=== PATIENT | female | born 1960 | race Caucasian/White ===

== ENCOUNTER 2018-02-03 09:55 | Inpatient (IN) | payer BC, MEDICAID ==
[~2018-02-03] VITALS: Ht 162.6 cm; Wt 80.3 kg
[2018-02-03 11:00] LABS: Basophils # (auto) 0.1 uL; Eosinophils # (auto) 0.2 uL; Hemoglobin 13.6 g/dL (12.2-16.2); Monocytes # (auto) 0.6 uL; Neutrophils # (auto) 4.4 uL; Nucleated Red Blood Cells % 0.1 %; Platelet Count (auto) 313 10^3/uL (140-450)
[2018-02-03 11:01] LABS: Basophils % (auto) 0.7 % (0.0-2.0); Eosinophils % (auto) 2.3 % (0.0-7.0); Lymphocytes # (auto) 2.9 uL; Lymphocytes % (auto) 36.3 % (10.0-50.0); Mean Corpuscular Hemoglobin 25.4 pg (28.0-32.0); Mean Corpuscular Hgb Conc. 32.4 g/dL (32.0-36.0); Mean Corpuscular Volume 78.3 fL (80.0-100.0); Monocytes % (auto) 6.8 % (0.0-12.0); Neutrophils % (auto) 53.9 % (37.0-80.0); Red Blood Cells 5.36 10^6/uL (4.0-5.20); Red Cell Distribution Width 17.2 % (11.8-14.3); White Blood Cell 8.1 10^3/uL (4.4-10.8)
[2018-02-03 11:15] LABS: Albumin 3.8 g/dL (3.4-5.0); BUN/Creatinine Ratio 17.3; Bilirubin, Total 0.5 mg/dL (0.2-1.0); Calcium 9.8 mg/dL (8.5-10.1); Potassium 4.1 mmol/L (3.5-5.1); Total Protein 7.8 g/dL (6.4-8.2)
[2018-02-03 11:24] LABS: Urine Bacteria NONE SEEN /hpf (None Seen); Urine Blood Negative /uL (Negative); Urine Mucus FEW (None Seen); Urine Specific Gravity 1.034 (1.001-1.035); Urine WBC 6 /hpf (0 - 5)
[2018-02-03] MEDS ORDERED: MORPHINE SULFATE 8mg/ml INJ SDV IV PRN (22:00)
[2018-02-03] MEDS ORDERED: LEVOFLOXACIN 500MG 100 ML IV ONE ×2 (22:00→22:10)
[2018-02-03] MEDS ORDERED: IBUPROFEN 600 MG TAB PO PRN (22:00)
[2018-02-03] MEDS ORDERED: HYDROcodone-ACET 5/325MG TAB ONE (22:10)
[2018-02-03] MEDS ORDERED: IPRATROPIUM BROM 0.5 MG/2.5ML INH SOL NEB PRN (22:15)
[2018-02-03] MEDS ORDERED: ALBUTEROL SULF 2.5 MG/0.5ML(0.5%) NEB SOLN NEB PRN (22:15)
[2018-02-03] MEDS: HYDROcodone-ACET 5/325MG TAB PO PRN (22:49)
[2018-02-04] VITALS (7 sets, daily range): BP systolic 107–181; BP diastolic 56–73
[2018-02-04] MEDS: ONDANSETRON HCL 4 MG/2 ML VIAL IV PRN ×3 (06:14→19:02)
[2018-02-04 06:44] LABS: Calcium 9.5 mg/dL (8.5-10.1)
[2018-02-04 06:46] LABS: Basophils # (auto) 0.1 uL; Eosinophils # (auto) 0.3 uL; Hemoglobin 13.3 g/dL (12.2-16.2); Mean Corpuscular Volume 78.7 fL (80.0-100.0); Monocytes # (auto) 0.6 uL; Nucleated Red Blood Cells % 0.1 %
[2018-02-04 06:49] LABS: Basophils % (auto) 0.9 % (0.0-2.0); Eosinophils % (auto) 4.2 % (0.0-7.0); Hematocrit 41.2 % (36.0-46.0); Lymphocytes # (auto) 2.4 uL; Lymphocytes % (auto) 31.2 % (10.0-50.0); Mean Corpuscular Hemoglobin 25.5 pg (28.0-32.0); Mean Corpuscular Hgb Conc. 32.3 g/dL (32.0-36.0); Monocytes % (auto) 8.1 % (0.0-12.0); Neutrophils # (auto) 4.3 uL; Neutrophils % (auto) 55.6 % (37.0-80.0); Platelet Count (auto) 263 10^3/uL (140-450); Red Blood Cells 5.23 10^6/uL (4.0-5.20); Red Cell Distribution Width 17.1 % (11.8-14.3); White Blood Cell 7.7 10^3/uL (4.4-10.8)
[2018-02-04] MEDS ORDERED: FUROSEMIDE 20 MG TAB PO SCH (10:00)
[2018-02-04] MEDS ORDERED: FAMOTIDINE 20 MG TAB PO SCH (10:00)
[2018-02-04] MEDS ORDERED: LISINOPRIL 10 MG TAB PO SCH (10:00)
[2018-02-04] MEDS: HYDROcodone-ACET 5/325MG TAB PO PRN (12:34)
[2018-02-04] MEDS ORDERED: SODIUM CHLORIDE 0.9% 1,000 ML IV SCH (13:00)
[2018-02-04] MEDS ORDERED: SOD CHL 0.9%/ KCL 20MEQ 1,000 ML IV SCH (14:00)
[2018-02-04] MEDS: Boost Glucose Control 8 Ounces PO SCH (18:09)
[2018-02-04] MEDS: MORPHINE SULFATE 10 MG/ML INJ 1ML SDV IV PRN (19:02)
[2018-02-04] MEDS ORDERED: LEVOFLOXACIN 500MG 100 ML IV SCH (22:00)
[2018-02-05] MEDS: MORPHINE SULFATE 10 MG/ML INJ 1ML SDV IV PRN ×2 (03:20→07:48)
[2018-02-05] MEDS: ONDANSETRON HCL 4 MG/2 ML VIAL IV PRN ×2 (03:20→07:47)
[2018-02-05 05:00] VITALS: BP 103/60
[2018-02-05] MEDS ORDERED: SODIUM CHLORIDE 0.9 % NEB SOLN 3ML NEB ONE (05:38)
[2018-02-05 06:02] LABS: Eosinophils # (auto) 0.2 uL; Hemoglobin 12.9 g/dL (12.2-16.2); Lymphocytes # (auto) 1.7 uL; Monocytes # (auto) 0.6 uL; Neutrophils # (auto) 4.5 uL; Nucleated Red Blood Cells % 0.1 %
[2018-02-05 06:06] LABS: Basophils # (auto) 0.1 uL; Basophils % (auto) 0.8 % (0.0-2.0); Eosinophils % (auto) 3.4 % (0.0-7.0); Hematocrit 39.9 % (36.0-46.0); Lymphocytes % (auto) 23.9 % (10.0-50.0); Mean Corpuscular Hemoglobin 25.7 pg (28.0-32.0); Mean Corpuscular Hgb Conc. 32.5 g/dL (32.0-36.0); Monocytes % (auto) 8.3 % (0.0-12.0); Neutrophils % (auto) 63.6 % (37.0-80.0); Platelet Count (auto) 231 10^3/uL (140-450); Red Blood Cells 5.04 10^6/uL (4.0-5.20)
[2018-02-05 06:32] LABS: Albumin 3.1 g/dL (3.4-5.0); Calcium 9.1 mg/dL (8.5-10.1); Potassium 4.5 mmol/L (3.5-5.1)
[2018-02-05 06:44] LABS: BUN/Creatinine Ratio 22.5
[2018-02-05 06:57] LABS: Bilirubin, Total 0.3 mg/dL (0.2-1.0); Total Protein 7.1 g/dL (6.4-8.2)
[2018-02-05] MEDS: Boost Glucose Control 8 Ounces PO SCH (07:48)
[2018-02-05 08:48] VITALS: BP 115/60
== END 2018-02-05 09:00 | disposition left against medical advice (07) | DRG 438 ==
LOC: ER 10:00 → OVERFLOW 10:01 → WEST WING 23:16
PROVIDERS: ADMIT Nurse Practitioner Family; ATTEND Internal Medicine
DX: K86.3 Pseudocyst of pancreas (principal); K85.91 Acute pancreatitis with uninfected necrosis, unspecified; E11.9 Type 2 diabetes mellitus without complications; N39.0 Urinary tract infection, site not specified; Z53.21 Procedure and treatment not carried out due to patient leaving prior to being seen by health care provider; E86.0 Dehydration; F17.210 Nicotine dependence, cigarettes, uncomplicated; I10 Essential (primary) hypertension; J44.9 Chronic obstructive pulmonary disease, unspecified; K86.0 Alcohol-induced chronic pancreatitis; Z80.3 Family history of malignant neoplasm of breast; Z85.038 Personal history of other malignant neoplasm of large intestine; Z81.8 Family history of other mental and behavioral disorders; Z81.1 Family history of alcohol abuse and dependence
CPT/HCPCS: 36415; 74176; 80048; 80053; 81001; 82150; 83690; 85025; 87086; 93005; 94761; 96365; J1956; J2270; J2405

== ENCOUNTER 2018-02-11 11:24 | Inpatient (IN) | payer BC, MEDICAID ==
[~2018-02-11] VITALS: Ht 162.6 cm; Wt 83.6 kg
[2018-02-11 12:13] LABS: Basophils # (auto) 0.1 uL; Lymphocytes # (auto) 2.5 uL; Monocytes # (auto) 0.8 uL; Nucleated Red Blood Cells % 0.1 %
[2018-02-11 12:15] LABS: Basophils % (auto) 0.7 % (0.0-2.0); Eosinophils # (auto) 0.2 uL; Eosinophils % (auto) 1.5 % (0.0-7.0); Hematocrit 39.9 % (36.0-46.0); Lymphocytes % (auto) 24.7 % (10.0-50.0); Mean Corpuscular Hemoglobin 25.3 pg (28.0-32.0); Mean Corpuscular Hgb Conc. 32.5 g/dL (32.0-36.0); Mean Corpuscular Volume 77.9 fL (80.0-100.0); Monocytes % (auto) 8.1 % (0.0-12.0); Neutrophils # (auto) 6.7 uL; Platelet Count (auto) 432 10^3/uL (140-450); Red Blood Cells 5.12 10^6/uL (4.0-5.20); Red Cell Distribution Width 17.2 % (11.8-14.3); White Blood Cell 10.3 10^3/uL (4.4-10.8)
[2018-02-11 12:44] LABS: Alanine Aminotransferase 13 U/L (13-56); Albumin 3.4 g/dL (3.4-5.0); Alkaline Phosphatase 146 U/L (45-117); Anion Gap 11 (5-15); Aspartate Aminotransferase 7 U/L (15-37); BUN/Creatinine Ratio 14.3; Bilirubin, Total 0.5 mg/dL (0.2-1.0); Blood Urea Nitrogen 10 mg/dL (7-18); Calcium 9.5 mg/dL (8.5-10.1); Carbon Dioxide 23 mmol/L (21-32); Chloride 105 mmol/L (98-107); GFR African American 111 mL/min; GFR Non-African American 92 mL/min; Glucose 125 mg/dL (74-106); Potassium 4.1 mmol/L (3.5-5.1); Sodium 139 mmol/L (136-145)
[2018-02-11 17:14] LABS: Amylase 45 U/L (25-115); Lipase 144 U/L (73-393)
[2018-02-11 19:05] LABS: Urine Bacteria NONE SEEN /hpf (None Seen); Urine Blood Negative /uL (Negative); Urine Mucus MANY (None Seen); Urine Specific Gravity 1.036 (1.001-1.035); Urine WBC 17 /hpf (0 - 5)
[2018-02-11] MEDS ORDERED: SODIUM CHLORIDE 0.9% 1,000 ML IVB ONE (20:06)
[2018-02-11] MEDS ORDERED: MORPHINE SULFATE 8mg/ml INJ SDV IV ONE (20:15)
[2018-02-11] MEDS ORDERED: ONDANSETRON HCL 4 MG/2 ML VIAL IV ONE (20:15)
[2018-02-11] MEDS ORDERED: metroNIDAZOLE 500MG/100ML 100 ML IV ONE (20:15)
[2018-02-11] MEDS ORDERED: cefTRIAXone 1GM/10ml IVPUSH 10 ML IV ONE (20:15)
[2018-02-11] MEDS: SODIUM CHLORIDE 0.9% 1,000 ML IV SCH ×2 (21:38→22:38)
[2018-02-11] MEDS ORDERED: PANTOPRAZOLE 40 MG/10 ML VIAL IV ONE (21:45)
[2018-02-11] MEDS ORDERED: LEVOFLOXACIN 500MG 100 ML IV ONE (21:45)
[2018-02-11] MEDS: metroNIDAZOLE 500MG/100ML 100 ML IV SCH (22:00)
[2018-02-11] MEDS: HYDROcodone-ACET 5/325MG TAB PO PRN (23:55)
[2018-02-12] MEDS: HYDROcodone-ACET 5/325MG TAB PO PRN ×4 (00:11→21:33)
[2018-02-12 05:18] VITALS: BP 105/63
[2018-02-12] MEDS: MORPHINE SULF INJ 2 MG/ML SYRINGE 1ML IV PRN ×2 (05:20→20:58)
[2018-02-12] MEDS: metroNIDAZOLE 500MG/100ML 100 ML IV SCH ×3 (05:21→21:33)
[2018-02-12 06:51] LABS: Basophils # (auto) 0.1 uL; Eosinophils # (auto) 0.3 uL; Neutrophils # (auto) 4.4 uL; Red Blood Cells 4.48 10^6/uL (4.0-5.20)
[2018-02-12 06:54] LABS: Basophils % (auto) 0.8 % (0.0-2.0); Eosinophils % (auto) 3.4 % (0.0-7.0); Hematocrit 35.4 % (36.0-46.0); Hemoglobin 11.5 g/dL (12.2-16.2); Lymphocytes % (auto) 26.2 % (10.0-50.0); Mean Corpuscular Hemoglobin 25.6 pg (28.0-32.0); Mean Corpuscular Hgb Conc. 32.4 g/dL (32.0-36.0); Mean Corpuscular Volume 79.2 fL (80.0-100.0); Monocytes # (auto) 0.8 uL; Monocytes % (auto) 10.7 % (0.0-12.0); Neutrophils % (auto) 58.9 % (37.0-80.0); Platelet Count (auto) 339 10^3/uL (140-450); Red Cell Distribution Width 17.2 % (11.8-14.3); White Blood Cell 7.5 10^3/uL (4.4-10.8)
[2018-02-12 07:02] LABS: Potassium 4.3 mmol/L (3.5-5.1)
[2018-02-12 07:14] LABS: Albumin 2.9 g/dL (3.4-5.0); BUN/Creatinine Ratio 19.8
[2018-02-12 07:16] LABS: Bilirubin, Total 0.3 mg/dL (0.2-1.0); Total Protein 7.2 g/dL (6.4-8.2)
[2018-02-12 08:00] VITALS: BP 105/62
[2018-02-12 09:00] VITALS: BP 105/62
[2018-02-12] MEDS: PANTOPRAZOLE 40 MG/10 ML VIAL IV SCH (09:34)
[2018-02-12] MEDS ORDERED: LISINOPRIL 10 MG TAB PO SCH (10:00)
[2018-02-12] MEDS ORDERED: ENOXAPARIN SOD 40 MG/0.4 ML SYRINGE SC SCH (10:00)
[2018-02-12] MEDS ORDERED: FUROSEMIDE 20 MG TAB PO SCH (10:00)
[2018-02-12] MEDS ORDERED: POTASSIUM CHLORIDE 8 MEQ TAB PO SCH (10:00)
[2018-02-12] MEDS ORDERED: LEVOFLOXACIN 500MG 100 ML IV SCH (10:00)
[2018-02-12 12:00] VITALS: BP 104/62
[2018-02-12 16:53] VITALS: BP 126/62
[2018-02-12] MEDS: ONDANSETRON HCL 4 MG/2 ML VIAL IV PRN (20:17)
[2018-02-12 22:00] VITALS: BP_SYST 109; BP_SYST 166; BP_DIAS 59; BP_DIAS 76
[2018-02-13] MEDS: MORPHINE SULF INJ 2 MG/ML SYRINGE 1ML IV PRN (04:25)
[2018-02-13 05:00] VITALS: BP 119/81
[2018-02-13] MEDS: metroNIDAZOLE 500MG/100ML 100 ML IV SCH ×3 (05:42→21:14)
[2018-02-13] MEDS: HYDROcodone-ACET 5/325MG TAB PO PRN ×4 (05:53→21:14)
[2018-02-13 08:00] VITALS: BP 112/64
[2018-02-13] MEDS: ONDANSETRON HCL 4 MG/2 ML VIAL IV PRN ×3 (08:28→21:18)
[2018-02-13] MEDS: cefTRIAXone 1GM/10ml IVPUSH 10 ML IV SCH (08:38)
[2018-02-13 09:00] VITALS: BP 112/64
[2018-02-13] MEDS: PANTOPRAZOLE 40 MG/10 ML VIAL IV SCH (09:31)
[2018-02-13 13:00] VITALS: BP 126/58
[2018-02-13] MEDS: SODIUM CHLORIDE 0.9% 1,000 ML IV SCH (13:24)
[2018-02-13 16:51] VITALS: BP 128/78
[2018-02-13 22:00] VITALS: BP 134/77
[2018-02-14] MEDS: ONDANSETRON HCL 4 MG/2 ML VIAL IV PRN ×3 (04:21→20:54)
[2018-02-14] MEDS: HYDROcodone-ACET 5/325MG TAB PO PRN ×3 (04:24→20:54)
[2018-02-14] MEDS: SODIUM CHLORIDE 0.9% 1,000 ML IV SCH ×2 (04:24→20:53)
[2018-02-14] MEDS: metroNIDAZOLE 500MG/100ML 100 ML IV SCH ×3 (05:28→22:10)
[2018-02-14 05:44] VITALS: BP 130/72
[2018-02-14 09:32] VITALS: BP 133/66
[2018-02-14] MEDS: cefTRIAXone 1GM/10ml IVPUSH 10 ML IV SCH (09:39)
[2018-02-14] MEDS: PANTOPRAZOLE 40 MG/10 ML VIAL IV SCH (09:40)
[2018-02-14 12:34] VITALS: BP 123/75
[2018-02-14 17:01] VITALS: BP 136/73
[2018-02-14 22:00] VITALS: BP 129/65
[2018-02-14] MEDS: TEMAZEPAM 15 MG CAP PO PRN (22:20)
[2018-02-15 05:00] VITALS: BP 153/75
[2018-02-15] MEDS: metroNIDAZOLE 500MG/100ML 100 ML IV SCH ×3 (05:45→21:40)
[2018-02-15] MEDS: HYDROcodone-ACET 5/325MG TAB PO PRN ×3 (05:46→21:40)
[2018-02-15 08:23] VITALS: BP 132/72
[2018-02-15] MEDS: cefTRIAXone 1GM/10ml IVPUSH 10 ML IV SCH (10:12)
[2018-02-15] MEDS: PANTOPRAZOLE 40 MG/10 ML VIAL IV SCH (10:12)
[2018-02-15 12:43] VITALS: BP 109/59
[2018-02-15] MEDS: ONDANSETRON HCL 4 MG/2 ML VIAL IV PRN (13:52)
[2018-02-15] MEDS: SODIUM CHLORIDE 0.9% 1,000 ML IV SCH ×2 (13:52→18:58)
[2018-02-15 17:08] VITALS: BP 142/66
[2018-02-15 22:00] VITALS: BP 140/79
[2018-02-16] MEDS: HYDROcodone-ACET 5/325MG TAB PO PRN ×3 (04:48→16:20)
[2018-02-16] MEDS: ONDANSETRON HCL 4 MG/2 ML VIAL IV PRN ×4 (04:49→22:19)
[2018-02-16 05:00] VITALS: BP 134/73
[2018-02-16] MEDS: metroNIDAZOLE 500MG/100ML 100 ML IV SCH ×4 (05:37→21:55)
[2018-02-16] MEDS: SODIUM CHLORIDE 0.9% 1,000 ML IV SCH ×2 (08:18→21:38)
[2018-02-16 09:00] VITALS: BP 131/66
[2018-02-16] MEDS: cefTRIAXone 1GM/10ml IVPUSH 10 ML IV SCH (09:05)
[2018-02-16] MEDS: PANTOPRAZOLE 40 MG/10 ML VIAL IV SCH (09:32)
[2018-02-16] MEDS ORDERED: HYDROmorphone HCL 2 MG/ML VL IV PRN (11:30)
[2018-02-16 13:52] VITALS: BP 141/63
[2018-02-16 17:00] VITALS: BP 152/70
[2018-02-16 22:00] VITALS: BP 157/78
[2018-02-16] MEDS: TEMAZEPAM 15 MG CAP PO PRN (22:19)
[2018-02-17] MEDS: ACETAMINOPHEN 325 MG TAB PO PRN ×2 (04:34→08:03)
[2018-02-17] MEDS: ONDANSETRON HCL 4 MG/2 ML VIAL IV PRN ×3 (04:34→13:59)
[2018-02-17 05:00] VITALS: BP 165/82
[2018-02-17] MEDS: metroNIDAZOLE 500MG/100ML 100 ML IV SCH ×3 (05:36→21:52)
[2018-02-17 08:00] VITALS: BP 148/85
[2018-02-17] MEDS: cefTRIAXone 1GM/10ml IVPUSH 10 ML IV SCH (10:36)
[2018-02-17] MEDS: PANTOPRAZOLE 40 MG/10 ML VIAL IV SCH (10:36)
[2018-02-17] MEDS: SODIUM CHLORIDE 0.9% 1,000 ML IV SCH (10:38)
[2018-02-17] MEDS ORDERED: HYDROmorphone HCL 2 MG/ML VL IV PRN (12:00)
[2018-02-17 12:26] VITALS: BP 144/77
[2018-02-17 16:40] VITALS: BP 165/83
[2018-02-17] MEDS: HYDROcodone-ACET 5/325MG TAB PO PRN (17:13)
[2018-02-17] MEDS: TEMAZEPAM 15 MG CAP PO PRN (21:51)
[2018-02-17 22:00] VITALS: BP 156/77
[2018-02-18] MEDS: SODIUM CHLORIDE 0.9% 1,000 ML IV SCH ×2 (00:18→13:38)
[2018-02-18] MEDS: ONDANSETRON HCL 4 MG/2 ML VIAL IV PRN ×3 (00:58→20:50)
[2018-02-18] MEDS: HYDROcodone-ACET 5/325MG TAB PO PRN ×5 (01:02→23:16)
[2018-02-18 05:00] VITALS: BP 147/82
[2018-02-18] MEDS: metroNIDAZOLE 500MG/100ML 100 ML IV SCH ×3 (05:16→21:21)
[2018-02-18 08:00] VITALS: BP 164/79
[2018-02-18 08:47] VITALS: BP 164/79
[2018-02-18] MEDS: PANTOPRAZOLE 40 MG/10 ML VIAL IV SCH (09:46)
[2018-02-18] MEDS: cefTRIAXone 1GM/10ml IVPUSH 10 ML IV SCH (09:46)
[2018-02-18 12:54] VITALS: BP 159/74
[2018-02-18 17:14] VITALS: BP 153/80
[2018-02-18] MEDS: ACETAMINOPHEN 325 MG TAB PO PRN (20:56)
[2018-02-18 22:00] VITALS: BP 152/68
[2018-02-18] MEDS: TEMAZEPAM 15 MG CAP PO PRN (23:13)
[2018-02-19] MEDS: SODIUM CHLORIDE 0.9% 1,000 ML IV SCH ×2 (01:22→15:03)
[2018-02-19] MEDS: ONDANSETRON HCL 4 MG/2 ML VIAL IV PRN (04:25)
[2018-02-19] MEDS: HYDROcodone-ACET 5/325MG TAB PO PRN ×3 (04:29→19:28)
[2018-02-19 05:07] VITALS: BP 151/89
[2018-02-19] MEDS: metroNIDAZOLE 500MG/100ML 100 ML IV SCH ×3 (05:11→21:23)
[2018-02-19 08:09] VITALS: BP 129/71
[2018-02-19] MEDS: cefTRIAXone 1GM/10ml IVPUSH 10 ML IV SCH (10:48)
[2018-02-19] MEDS: PANTOPRAZOLE 40 MG/10 ML VIAL IV SCH (10:48)
[2018-02-19 12:30] VITALS: BP 131/81
[2018-02-19] MEDS: KETOROLAC TROMETH 30 MG/ML 1ML VIAL IV PRN ×2 (15:03→21:23)
[2018-02-19 16:14] VITALS: BP 130/75
[2018-02-19 22:00] VITALS: BP 136/89
[2018-02-20] MEDS: ONDANSETRON HCL 4 MG/2 ML VIAL IV PRN ×2 (03:48→08:57)
[2018-02-20] MEDS: HYDROcodone-ACET 5/325MG TAB PO PRN ×2 (03:49→08:58)
[2018-02-20 05:00] VITALS: BP 139/87
[2018-02-20] MEDS: KETOROLAC TROMETH 30 MG/ML 1ML VIAL IV PRN ×2 (05:52→12:22)
[2018-02-20] MEDS: SODIUM CHLORIDE 0.9% 1,000 ML IV SCH (05:52)
[2018-02-20] MEDS: metroNIDAZOLE 500MG/100ML 100 ML IV SCH (05:52)
[2018-02-20 08:01] VITALS: BP 141/74
[2018-02-20] MEDS: cefTRIAXone 1GM/10ml IVPUSH 10 ML IV SCH (08:58)
[2018-02-20] MEDS: PANTOPRAZOLE 40 MG/10 ML VIAL IV SCH (09:51)
[2018-02-20 11:45] VITALS: BP 149/63
[2018-02-20 16:13] VITALS: BP 150/82
[2018-02-20 16:29] VITALS: BP 145/78
== END 2018-02-20 17:00 | disposition home or self-care (01) | DRG 439 ==
LOC: ER 11:27 → OVERFLOW 11:28 → WEST WING 23:19
PROVIDERS: ADMIT Nurse Practitioner; ATTEND Internal Medicine
DX: K86.3 Pseudocyst of pancreas (principal); N39.0 Urinary tract infection, site not specified; E44.0 Moderate protein-calorie malnutrition; I31.3 Pericardial effusion (noninflammatory); K86.1 Other chronic pancreatitis; J44.9 Chronic obstructive pulmonary disease, unspecified; K52.9 Noninfective gastroenteritis and colitis, unspecified; K57.30 Diverticulosis of large intestine without perforation or abscess without bleeding; I10 Essential (primary) hypertension; F17.210 Nicotine dependence, cigarettes, uncomplicated; Z88.0 Allergy status to penicillin; Z68.31 Body mass index [BMI] 31.0-31.9, adult
CPT/HCPCS: 36415; 71045; 74176; 80053; 81001; 81025; 82150; 83690; 84484; 85025; 87081; 93005; 94761; 96361; 96365; 96367; 96375; C9113; J1885; J1956; J2405; J3490

== ENCOUNTER 2019-04-25 08:20 | Inpatient (IN) | payer BC, MEDICAID ==
[~2019-04-25] VITALS: Ht 162.6 cm; Wt 88.8 kg
[2019-04-25 08:56] LABS: Basophils # (auto) 0.1 uL; Eosinophils # (auto) 0 uL; Eosinophils % (auto) 0.1 % (0.0-7.0); Hemoglobin 18.4 g/dL (12.2-16.2); Lymphocytes # (auto) 1.7 uL; Monocytes # (auto) 1.4 uL
[2019-04-25 08:57] LABS: Basophils % (auto) 0.6 % (0.0-2.0); Hematocrit 54.3 % (36.0-46.0); Lymphocytes % (auto) 8.8 % (10.0-50.0); Mean Corpuscular Volume 85.3 fL (80.0-100.0); Monocytes % (auto) 7.6 % (0.0-12.0); Neutrophils # (auto) 15.8 uL; Neutrophils % (auto) 82.9 % (37.0-80.0); Nucleated Red Blood Cells % 0.1 %; Platelet Count (auto) 245 10^3/uL (140-450); Red Blood Cells 6.36 10^6/uL (4.0-5.20); Red Cell Distribution Width 15.4 % (11.8-14.3); White Blood Cell 19.1 10^3/uL (4.4-10.8)
[2019-04-25 09:05] LABS: Alanine Aminotransferase 19 U/L (13-56); Anion Gap 9 (5-15); Aspartate Aminotransferase 19 U/L (15-37); Blood Urea Nitrogen 15 mg/dL (7-18); Calcium 9.2 mg/dL (8.5-10.1); Carbon Dioxide 23 mmol/L (21-32); Chloride 105 mmol/L (98-107); GFR African American 79 mL/min; GFR Non-African American 65 mL/min; Glucose 166 mg/dL (74-106); Magnesium 2.1 mg/dL (1.6-2.6); Potassium 4.3 mmol/L (3.5-5.1); Sodium 137 mmol/L (136-145)
[2019-04-25 09:10] LABS: Alkaline Phosphatase 109 U/L (45-117); Bilirubin, Total 1.2 mg/dL (0.2-1.0); Total Protein 7.9 g/dL (6.4-8.2)
[2019-04-25 09:14] LABS: Urine Bacteria NONE SEEN /hpf (None Seen); Urine Blood 1+ /uL (Negative); Urine Specific Gravity 1.025 (1.001-1.035); Urine WBC 3 /hpf (0 - 5)
[2019-04-25] MEDS ORDERED: SODIUM CHLORIDE 0.9% 1,000 ML IV ONE (10:34)
[2019-04-25] MEDS ORDERED: IOHEXOL 350 MG/ML 100ML IJ ONE (10:44)
[2019-04-25] MEDS ORDERED: ALBUTEROL SULF 2.5 MG/0.5ML(0.5%) NEB SOLN NEB ONE (10:45)
[2019-04-25] MEDS ORDERED: HYDROmorphone HCL 2 MG/ML VL IV ONE (10:45)
[2019-04-25] MEDS ORDERED: IPRATROPIUM BROM 0.5 MG/2.5ML INH SOL NEB ONE (10:45)
[2019-04-25] MEDS: PROMETHAZINE HCL 25 MG/ML 1ML IV PRN ×2 (11:36→16:15)
[2019-04-25 11:45] LABS: Lipase 1592 U/L (73-393)
[2019-04-25] MEDS ORDERED: IPRATROPIUM BROM 0.5 MG/2.5ML INH SOL NEB PRN (14:45)
[2019-04-25] MEDS ORDERED: ALBUTEROL SULF 2.5 MG/0.5ML(0.5%) NEB SOLN NEB PRN (14:45)
[2019-04-25] MEDS ORDERED: ONDANSETRON HCL 4 MG/2 ML VIAL IV PRN ×2 (14:45)
[2019-04-25] MEDS ORDERED: MORPHINE SULF INJ 2 MG/ML SYRINGE 1ML IV PRN (14:45)
[2019-04-25] MEDS ORDERED: NITROGLYCERIN 0.4 MG SL TAB SL PRN (14:45)
[2019-04-25 14:47] VITALS: BP 145/74
[2019-04-25] MEDS: SODIUM CHLORIDE 0.9% 1,000 ML IV SCH (15:00)
[2019-04-25] MEDS: HYDROmorphone HCL 2 MG/ML VL IV PRN ×2 (16:15→21:44)
--- NOTE | 2019-04-25 17:45 | NUR ---
RECEIVED REPORT FROM CINTHIA WADSWORTH.
[2019-04-25] MEDS ORDERED: ACETAMINOPHEN 325 MG TAB PO ONE (18:00)
--- NOTE | 2019-04-25 18:10 | NUR ---
Telemetry admit from ER BRAD NESS admitted to Telemetry unit after SBAR received. Patient oriented to JOHN FARAH RN, unit, room, bed, and unit policies regarding patient care and visiting hours. Patient now on continuous telemetry monitoring, tele box # [id number] and telemetry reading on arrival to unit is SINUS TACHYCARDIA. Patient weighed by bedscale and encouraged to call if they need something. All questions and concerns addressed, patient verbalized understanding.
[2019-04-25 18:18] VITALS: BP 132/75
--- NOTE | 2019-04-25 19:28 | NUR ---
OPENING NOTES RECEIVED REPORT FROM DAY SHIFT NURSE. PT IS AWAKE, ALERT, AND ORIENTATED X 4 WITH NO S/S OF DISTRESS NOR PAIN. NO SOB NOTED. PT SAYS FEW WORDS. BED IS IN LOWEST POSITIONS WITH SIDE RAILS UP X 2. BED BRAKES ARE LOCKED AND CALL LIGHT IS WITH IN REACH. WILL MONITOR Q 1HR.
[2019-04-25] MEDS: FAMOTIDINE (10MG/ML) 2ML VL IV SCH (21:45)
[2019-04-25 22:00] VITALS: BP 129/72
--- NOTE | 2019-04-25 22:58 | NUR ---
Respiratory note: PT ASSESSED FOR PRN MED NEB TX. PT SLEEPING, ON ROOM AIR WHEN ARRIVED AT BEDSIDE, SPO2 NOTED AT 85%. PT PLACED ON 2L NC, SPO2 NOTED AT 93%. PT PRESENTING NO SOB OR RESPIRATORY DISTRESS. HR 105, RR 16, BS DIMINISHED, SPO2 93% ON 2L NC. PT REFUSED MED NEB TX AT THIS TIME BUT IS AWARE TO HAVE RN PAGE RT IF MED NEB IS NEEDED. WILL CONTINUE TO MONITOR.
[2019-04-26] MEDS: HYDROmorphone HCL 2 MG/ML VL IV PRN ×5 (01:06→19:46)
[2019-04-26] MEDS: SODIUM CHLORIDE 0.9% 1,000 ML IV SCH ×2 (01:17→10:30)
[2019-04-26 05:00] VITALS: BP 120/71
[2019-04-26 05:24] LABS: Basophils # (auto) 0.1 uL; Basophils % (auto) 0.7 % (0.0-2.0); Eosinophils # (auto) 0.1 uL; Eosinophils % (auto) 0.6 % (0.0-7.0); Hematocrit 47.2 % (36.0-46.0); Hemoglobin 15.7 g/dL (12.2-16.2); Lymphocytes # (auto) 1.3 uL; Lymphocytes % (auto) 10.3 % (10.0-50.0); Mean Corpuscular Hemoglobin 28.9 pg (28.0-32.0); Mean Corpuscular Hgb Conc. 33.2 g/dL (32.0-36.0); Monocytes # (auto) 0.9 uL; Monocytes % (auto) 7.6 % (0.0-12.0); Neutrophils # (auto) 9.8 uL; Neutrophils % (auto) 80.8 % (37.0-80.0); Platelet Count (auto) 173 10^3/uL (140-450); Red Blood Cells 5.42 10^6/uL (4.0-5.20); Red Cell Distribution Width 15.6 % (11.8-14.3); White Blood Cell 12.2 10^3/uL (4.4-10.8)
[2019-04-26 05:43] LABS: Albumin 3.2 g/dL (3.4-5.0); BUN/Creatinine Ratio 21.5; Calcium 8.4 mg/dL (8.5-10.1); Potassium 4.1 mmol/L (3.5-5.1)
[2019-04-26 05:47] LABS: Bilirubin, Total 1.2 mg/dL (0.2-1.0); Total Protein 6.7 g/dL (6.4-8.2)
--- NOTE | 2019-04-26 07:14 | NUR ---
Respiratory PT AWAKE AND ALERT. NO RESPIRATORY DISTRESS NOTED. SPO2 92% ON 2L NC, HR 104, RR 18, BS CLEAR T/O. PRN MEDNEB TX NOT INDICATED AT THIS TIME. PT INFORMED TO PUSH CALL BUTTON IF INCREASED WOB, SOB, OR WHEEZING OCCURS.
--- NOTE | 2019-04-26 07:33 | NUR ---
CLOSING NOTES ENDORSED CARE TO DAY SHIFT NURSEPATRICIA.
--- NOTE | 2019-04-26 07:40 | NUR ---
Opening Shift Note Assumed care of patient, awake and alert. No S/S of distress/SOB reported, c/o abd pain 02/15, will medicate PRN as ordered. IV patent to right AC, no redness or swelling noted. Instructed on POC and to call for assist PRN, call light within reach, will continue to monitor for changes Q1hr and PRN.
[2019-04-26 08:00] VITALS: BP 119/65
[2019-04-26] MEDS: FAMOTIDINE (10MG/ML) 2ML VL IV SCH ×2 (08:54→22:04)
[2019-04-26] MEDS: NICOTINE 21MG/24 HR TOPICAL PATCH TD SCH (08:55)
[2019-04-26 09:37] VITALS: BP 119/65
[2019-04-26 13:13] VITALS: BP 133/77
[2019-04-26] MEDS: LACTATED RINGER'S 1,000 ML IV SCH ×2 (13:45→22:03)
[2019-04-26 17:14] VITALS: BP 110/67
--- NOTE | 2019-04-26 19:01 | NUR ---
Respiratory note: ASSESSED PT FOR PRN MED NEB TX. PT IS CURRENTLY ON 2 L/M: HR 88, RR 18, SPO2 94%. PT SHOWS NO S/S OF RESPIRATORY DISTRESS. MED NEB TX NOT INDICATED AT THIS TIME. WILL CONTINUE TO MONITOR.
[2019-04-26 22:04] VITALS: BP 128/69
[2019-04-27] MEDS: HYDROmorphone HCL 2 MG/ML VL IV PRN ×4 (01:56→23:14)
--- NOTE | 2019-04-27 06:42 | NUR ---
Respiratory note: HR 83, RR 14, SPO2 90% RA, BS CLEAR. 2 L NC ON STANDBY. PT JUST RETURNED TO BED FROM RESTROOM.PRN MED NEB TX NOT INDICATED AT THIS TIME.NO RESPIRATORY DISTRESS NOTED. PT INFORMED TO HIT CALL BUTTON IF FEELING SOB OR WHEEZING.
[2019-04-27 06:56] LABS: Albumin 2.8 g/dL (3.4-5.0); Bilirubin, Total 0.9 mg/dL (0.2-1.0); Calcium 8.4 mg/dL (8.5-10.1); Potassium 4.1 mmol/L (3.5-5.1); Total Protein 6.5 g/dL (6.4-8.2)
--- NOTE | 2019-04-27 07:35 | NUR ---
Opening Shift Note Assumed care of patient, awake and alert. No S/S of distress/SOB reported, c/o abd pain 01/15, states " im okay now, they just gave me something for pain" will medicate PRN as ordered. IV patent to right FA, no redness or swelling noted. Instructed on POC and to call for assist PRN, call light within reach, will continue to monitor for changes Q1hr and PRN.
[2019-04-27 09:01] VITALS: BP 102/56
[2019-04-27] MEDS: NICOTINE 21MG/24 HR TOPICAL PATCH TD SCH (10:00)
[2019-04-27 11:03] LABS: Basophils # (auto) 0.1 uL; Basophils % (auto) 0.6 % (0.0-2.0); Eosinophils # (auto) 0.1 uL; Eosinophils % (auto) 1.3 % (0.0-7.0); Hematocrit 41.9 % (36.0-46.0); Hemoglobin 14.2 g/dL (12.2-16.2); Lymphocytes # (auto) 1.5 uL; Lymphocytes % (auto) 15.5 % (10.0-50.0); Mean Corpuscular Hemoglobin 29.5 pg (28.0-32.0); Mean Corpuscular Volume 86.8 fL (80.0-100.0); Monocytes # (auto) 0.8 uL; Monocytes % (auto) 8.2 % (0.0-12.0); Neutrophils # (auto) 7.4 uL; Neutrophils % (auto) 74.4 % (37.0-80.0); Platelet Count (auto) 152 10^3/uL (140-450); Red Blood Cells 4.82 10^6/uL (4.0-5.20); Red Cell Distribution Width 15.1 % (11.8-14.3); White Blood Cell 9.9 10^3/uL (4.4-10.8)
[2019-04-27] MEDS: FAMOTIDINE (10MG/ML) 2ML VL IV SCH ×2 (11:06→21:48)
[2019-04-27] MEDS: LACTATED RINGER'S 1,000 ML IV SCH ×3 (11:10→21:48)
[2019-04-27 13:12] VITALS: BP 121/47
[2019-04-27 14:22] LABS: Urine Bacteria NONE SEEN /hpf (None Seen); Urine Blood 1+ /uL (Negative); Urine Mucus FEW (None Seen); Urine Specific Gravity 1.019 (1.001-1.035); Urine WBC 9 /hpf (0 - 5)
[2019-04-27 14:33] LABS: Protein, Urine 111.6 mg/dL (0.0-11.9)
--- NOTE | 2019-04-27 15:09 | NUR ---
Nutrition Assessment Notes Please see attached link for complete assessment Est. Needs BW (71 kg): [id number] kcal (23-25 kcal/kgBW), 71-78 gms pro (1.0-1.1 gms/kgBW). Will continue to monitor pertinent labs and reassess nutrient need prn Addendum: 04/27/19 at [address] Amended: Links added.
[2019-04-27 16:29] VITALS: BP 127/70
--- NOTE | 2019-04-27 20:00 | NUR ---
RECEIVED PT IN BED, A/O X4, IN NO ACUTE DISTRESS, DENIES PAIN. POC REVIEWED WITH PT, VERBALIZED UNDERSTANDING. AWARE SHE IS ON CLEAR LIQUID DIET. CALL LIGHT WITHIN REACH, ENCOURAGED TO CALL IF HELP IS NEEDED, SIDE RAILS UP X2, BED IN LOWEST LOCKED POSITION, NON SKID SOCKS ON. CONTINUE CARE.
[2019-04-27 22:00] VITALS: BP 123/61
--- NOTE | 2019-04-27 22:53 | NUR ---
PT SEEN AND ASSESSED FOR PRN MED NEB TX AT 2253. TX NOT INDICATED AT THIS TIME. PT IS DISPLAYING NO SIGNS OF DISTRESS. BREATH SOUNDS WERE CLEAR AND DIMINISHED BILATERALLY. HR 89 RR 20 93% ON ROOM AIR. PT IS AWARE TO CALL FOR RT IF ANY DISTRESS OCCURS.
--- NOTE | 2019-04-28 01:30 | NUR ---
IV insertion IV access obtained, via clean sterile technique by inserting 22 gauge catheter at Left FA after 1 attempt. IV secured properly. No trauma to site. Patient tolerated well.
[2019-04-28 05:01] VITALS: BP 145/64
[2019-04-28] MEDS: HYDROmorphone HCL 2 MG/ML VL IV PRN ×3 (06:02→17:10)
[2019-04-28] MEDS: LACTATED RINGER'S 1,000 ML IV SCH ×2 (06:02→16:00)
--- NOTE | 2019-04-28 07:20 | NUR ---
Opening Shift Note Assumed care of patient, awake and alert. No S/S of distress/SOB reported, or pain at this time. IV patent to right FA, no redness or swelling noted. Instructed on POC and to call for assist PRN, call light within reach, will continue to monitor for changes Q1hr and PRN
[2019-04-28 08:00] VITALS: BP_SYST 121; BP_DIAS 70; BP_DIAS 73
[2019-04-28] MEDS: NICOTINE 21MG/24 HR TOPICAL PATCH TD SCH (10:00)
[2019-04-28] MEDS: FAMOTIDINE (10MG/ML) 2ML VL IV SCH ×2 (10:14→22:26)
[2019-04-28 10:55] VITALS: BP 121/73
[2019-04-28 12:00] VITALS: BP 135/56
--- NOTE | 2019-04-28 13:28 | NUR ---
Respiratory note: PT ASSESSED FOR PRN MED NEB TX. NO SOB NOTED ON RA. POX 91%, HR 86, RR 16. B/S ARE CLEAR THROUGHOUT. PT IS AWARE TO PRESS THE CALL LIGHT IF SHE FEEL SOB TO RECEIVE A MED NEB TX.
--- NOTE | 2019-04-28 16:30 | NUR ---
PATIENT TOLERATED FULL LIQUID DIET NO C/O N/V, WILL ADVANCE DIET ORDERED, CONT CARE
[2019-04-28 17:01] VITALS: BP 146/80
--- NOTE | 2019-04-28 19:27 | NUR ---
OPENING NOTES RECEIVED REPORT FROM DAY SHIFT NURSE. PT IS AWAKE, ALERT, AND ORIENTATED X 4 WITH NO S/S OF DISTRESS NOR PAIN. NO SOB NOTED. TOLD PT TO CALL FOR ASSISTANCE. BED IS IN LOWEST POSITIONS WITH SIDE RAILS UP X 2. BED BRAKES ARE LOCKED AND CALL LIGHT IS WITH IN REACH. WILL MONITOR Q 1HR.
--- NOTE | 2019-04-28 19:32 | NUR ---
Respiratory note: PRN ASSESSMENT FOR MED NEB TX. HR 84, SPO2 92% ON ROOM AIR, RR 16, BS DIMINISHED. PT PRESENTING NO RESPIRATORY DISTRESS AT THIS TIME, MED NEB TX NOT INDICATED AT THIS TIME. PT AWARE TO HAVE RN PAGE RT IF MED NEB TX IS NEEDED, WILL CONTINUE TO MONITOR.
[2019-04-28 21:26] VITALS: BP 150/68
[2019-04-29] MEDS: PROMETHAZINE HCL 25 MG/ML 1ML IV PRN (00:48)
[2019-04-29 03:56] VITALS: BP 147/74
[2019-04-29] MEDS: LACTATED RINGER'S 1,000 ML IV SCH (05:45)
[2019-04-29] MEDS: HYDROmorphone HCL 2 MG/ML VL IV PRN (06:37)
--- NOTE | 2019-04-29 07:34 | NUR ---
closing notes endorsed care to day shift nurseTiffanie.
[2019-04-29 08:00] VITALS: BP 156/71
--- NOTE | 2019-04-29 09:30 | NUR ---
AT BEDSIDE DR ELENA AT BEDSIDE, DISCUSSING POC WITH, PATIENT WILL BE DISCHARGED, PT VERBALIZED UNDERSTANDING, CONT CARE
[2019-04-29] MEDS: FAMOTIDINE (10MG/ML) 2ML VL IV SCH (10:00)
[2019-04-29] MEDS: NICOTINE 21MG/24 HR TOPICAL PATCH TD SCH (10:00)
[2019-04-29 12:00] VITALS: BP 158/73
[2019-04-29 12:02] VITALS: BP 156/71
--- NOTE | 2019-04-29 12:50 | NUR ---
DISCHARGE Discharge instructions given as ordered. Encourage to follow up with PMD as instructed. No insurance was recorded and urgent care voucher provided, and Marquita Hernandez business card was provided, patient states she does and she is in between changing providers and will make and appointment. All questions and concerns addressed. Patient verbalized understanding. Medication reconciliation form completed and copy given to patient. IV removed with catheter intact, pressure dressing applied. Telemetry unit returned to ICU. Patient ambulated to [facility] with all personal belongings, accompanied by staff and son. No distress noted at time of departure.
== END 2019-04-29 12:50 | disposition home or self-care (01) | DRG 439 ==
LOC: ER 08:20 → TELE 08:21 → TELE-WESTW 18:11
PROVIDERS: ADMIT Nurse Practitioner Acute Care; ATTEND Internal Medicine Nephrology
DX: K85.90 Acute pancreatitis without necrosis or infection, unspecified (principal); J44.1 Chronic obstructive pulmonary disease with (acute) exacerbation; K82.1 Hydrops of gallbladder; K86.3 Pseudocyst of pancreas; R65.10 Systemic inflammatory response syndrome (SIRS) of non-infectious origin without acute organ dysfunction; E66.9 Obesity, unspecified; K86.1 Other chronic pancreatitis; F17.210 Nicotine dependence, cigarettes, uncomplicated; I10 Essential (primary) hypertension; R91.1 Solitary pulmonary nodule; R73.9 Hyperglycemia, unspecified; K29.80 Duodenitis without bleeding; K42.9 Umbilical hernia without obstruction or gangrene; Z80.3 Family history of malignant neoplasm of breast; Z80.0 Family history of malignant neoplasm of digestive organs; Z83.3 Family history of diabetes mellitus; Z88.0 Allergy status to penicillin; Z79.899 Other long term (current) drug therapy; Z71.6 Tobacco abuse counseling; Z68.33 Body mass index [BMI] 33.0-33.9, adult
CPT/HCPCS: 36415; 71046; 71260; 74177; 80053; 80061; 81001; 82570; 83605; 83690; 83735; 84156; 84484; 85025; 85379; 93005; 94640; G0378; J3490

== ENCOUNTER 2019-06-24 20:49 | Inpatient (IN) | payer MEDICAID ==
[~2019-06-24] VITALS: Ht 162.6 cm; Wt 88.8 kg
[2019-06-24 21:19] LABS: Basophils # (auto) 0.1 uL; Eosinophils # (auto) 0.1 uL; Hemoglobin 17.6 g/dL (12.2-16.2); Lymphocytes # (auto) 2.9 uL; Monocytes # (auto) 0.9 uL; White Blood Cell 15.7 10^3/uL (4.4-10.8)
[2019-06-24 21:22] LABS: Basophils % (auto) 0.5 % (0.0-2.0); Eosinophils % (auto) 0.8 % (0.0-7.0); Hematocrit 52.2 % (36.0-46.0); Lymphocytes % (auto) 18.5 % (10.0-50.0); Mean Corpuscular Hgb Conc. 33.8 g/dL (32.0-36.0); Monocytes % (auto) 5.7 % (0.0-12.0); Neutrophils # (auto) 11.7 uL; Neutrophils % (auto) 74.5 % (37.0-80.0); Nucleated Red Blood Cells % 0.4 %; Platelet Count (auto) 245 10^3/uL (140-450); Red Blood Cells 6.07 10^6/uL (4.0-5.20); Red Cell Distribution Width 15.2 % (11.8-14.3)
[2019-06-24 21:38] LABS: Alanine Aminotransferase 30 U/L (13-56); Albumin 4.4 g/dL (3.4-5.0); Amylase 479 U/L (25-115); Anion Gap 10 (5-15); Aspartate Aminotransferase 21 U/L (15-37); BUN/Creatinine Ratio 21.9; Blood Urea Nitrogen 23 mg/dL (7-18); Calcium 10.1 mg/dL (8.5-10.1); Carbon Dioxide 26 mmol/L (21-32); Chloride 104 mmol/L (98-107); GFR African American 69 mL/min; GFR Non-African American 57 mL/min; Glucose 196 mg/dL (74-106); Magnesium 2.2 mg/dL (1.6-2.6); Potassium 3.7 mmol/L (3.5-5.1); Sodium 140 mmol/L (136-145)
[2019-06-24 21:41] LABS: Alkaline Phosphatase 117 U/L (45-117); Bilirubin, Total 0.4 mg/dL (0.2-1.0); Total Protein 8.3 g/dL (6.4-8.2)
[2019-06-24 22:03] LABS: Lipase 14566 U/L (73-393)
[2019-06-24] MEDS ORDERED: SODIUM CHLORIDE 0.9% 1,000 ML IV ONE (23:15)
[2019-06-24] MEDS ORDERED: MORPHINE SULFATE 4 MG/ML SYR/VIAL IV ONE (23:15)
[2019-06-24] MEDS ORDERED: ONDANSETRON HCL 4 MG/2 ML VIAL IV ONE (23:15)
[2019-06-25] MEDS ORDERED: MORPHINE SULFATE 4 MG/ML SYR/VIAL IV ONE (03:15)
[2019-06-25] MEDS ORDERED: ONDANSETRON HCL 4 MG/2 ML VIAL IV ONE (03:15)
[2019-06-25] MEDS ORDERED: KETOROLAC TROMETH 30 MG/ML 1ML VIAL IV ONE (08:15)
[2019-06-25 09:42] LABS: Urine Bacteria NONE SEEN /hpf (None Seen); Urine Blood Negative /uL (Negative); Urine Hyaline Cast FEW /lpf (0 - 2); Urine Mucus FEW (None Seen); Urine WBC 6 /hpf (0 - 5)
[2019-06-25] MEDS ORDERED: MORPHINE SULF INJ 2 MG/ML SYRINGE 1ML IV PRN (10:00)
[2019-06-25] MEDS ORDERED: NITROGLYCERIN 0.4 MG SL TAB SL PRN (10:00)
[2019-06-25] MEDS ORDERED: ONDANSETRON HCL 4 MG/2 ML VIAL IV PRN (10:45)
[2019-06-25] MEDS ORDERED: DEXTROSE (50%) 50ML SYRG IV PRN (10:45)
[2019-06-25] MEDS: SODIUM CHLORIDE 0.9% 1,000 ML IV SCH ×2 (11:35→18:09)
[2019-06-25] MEDS: InsuLIN REG 1unit/0.01ml Soln (100units/ml) SC SCH ×2 (11:53→17:00)
[2019-06-25] MEDS: ACCU-CHEK COMFORT CURVE STRIP VI SCH ×2 (11:53→17:01)
[2019-06-25] MEDS: MORPHINE SULF INJ 2 MG/ML SYRINGE 1ML IV PRN ×2 (12:08→22:00)
[2019-06-25] MEDS ORDERED: OMNIPAQUE ORAL SOLN 500ml 12mg/ml PO ONE (12:56)
[2019-06-25 13:00] VITALS: BP 127/72
[2019-06-25] MEDS ORDERED: TPN PER PHARMACY 0 ML IV SCH (13:00)
[2019-06-25] MEDS ORDERED: IOHEXOL 300 MG/ML 100ML BOTTLE IJ ONE (14:08)
[2019-06-25 14:18] LABS: INR 1.01 (0.9-1.15); Partial Thromboplastin Time 28.2 sec (23.64-32.05)
[2019-06-25 14:23] LABS: Albumin 4.1 g/dL (3.4-5.0); Calcium 9.2 mg/dL (8.5-10.1); Magnesium 2.3 mg/dL (1.6-2.6); Potassium 4.9 mmol/L (3.5-5.1)
[2019-06-25 14:26] LABS: BUN/Creatinine Ratio 21.3; Bilirubin, Total 0.6 mg/dL (0.2-1.0); Phosphorus 4.9 mg/dL (2.5-4.90); Pre Albumin 27.3 mg/dL (20.0-40.0); Total Protein 7.6 g/dL (6.4-8.2)
--- NOTE | 2019-06-25 15:00 | NUR ---
received report from CINTHIA Curry assumed care of pt awake and alert, no signs of distress or complaints of abdominal pain at this time, will continue to monitor.
[2019-06-25] MEDS ORDERED: LIDOCAINE 1% (LOCAL ANESTH.) PF 5ml SDV ID ONE (16:00)
--- NOTE | 2019-06-25 16:01 | NUR ---
PICC line placement Patient/Patient significant other educated on need for PICC line placement. All risks and benefits explained and all questions and concerns addressed prior to procedure. Noted past medical history and allergies with no contraindications. INR and Plt counts within acceptable range. 5 fr PICC line inserted via right basilic vein using [employer] US and Tip Location System. Sterile technique with maximum barrier precautions utilized. Blood return obtained from each of the 2 lumens and each flushed easily with NS using proper technique. PICC secured with Stat-lock; biodisc and occlusive dressing applied. Stat portable chest x-ray obtained for PICC tip placement. *Baseline Arm Circumference 31 cm. Internal length 41 cm. External length 0 cm. PICC lot #[id number]
--- NOTE | 2019-06-25 16:29 | NUR ---
Iris use PICC line Xray completed and reviewed. Torin to use PICC line. Addendum: 06/25/19 at 1630 by MARION DAVIES RN Torin to use PICC line Xray completed and reviewed. Torin to use PICC line.
[2019-06-25 17:00] VITALS: BP 131/57
--- NOTE | 2019-06-25 19:50 | NUR ---
Opening Shift Note Assumed care of patient, awake, alert and oriented x 4. No S/S of distress/SOB or pain. On 3L oxygen via nasal cannula, ambulatory. Bed in lowest locked position, side rails up x2, call light within reach. Instructed on POC and to call for assist PRN, will continue to monitor for changes Q1hr and PRN.
[2019-06-25] MEDS: CLINIMIX PER PHARMACY IV NR (20:00)
[2019-06-25] MEDS: SODIUM CHLOR 0.9% PF (SALINE LOCK) 10ML VIAL/SYR IV SCH (21:44)
[2019-06-25 22:00] VITALS: BP 119/63
[2019-06-25] MEDS ORDERED: InsuLIN REG 1unit/0.01ml Soln (100units/ml) SC SCH (22:00)
[2019-06-26] MEDS ORDERED: DEXTROSE (50%) 50ML SYRG IV SCH
[2019-06-26] MEDS: InsuLIN REG 1unit/0.01ml Soln (100units/ml) SC SCH ×4 (00:01→18:04)
[2019-06-26] MEDS: SODIUM CHLORIDE 0.9% 1,000 ML IV SCH ×3 (02:45→17:49)
[2019-06-26 05:00] VITALS: BP 102/65
[2019-06-26] MEDS: ACCU-CHEK COMFORT CURVE STRIP VI SCH ×4 (05:50→18:03)
[2019-06-26] MEDS: MORPHINE SULF INJ 2 MG/ML SYRINGE 1ML IV PRN ×3 (06:14→22:15)
--- NOTE | 2019-06-26 06:30 | NUR ---
SENT BLOOD DRAW TO LAB
[2019-06-26 06:49] LABS: Basophils # (auto) 0.1 uL; Basophils % (auto) 0.6 % (0.0-2.0); Eosinophils # (auto) 0.1 uL; Eosinophils % (auto) 1.3 % (0.0-7.0); Hematocrit 41.8 % (36.0-46.0); Hemoglobin 13.5 g/dL (12.2-16.2); Lymphocytes # (auto) 1.4 uL; Lymphocytes % (auto) 15.5 % (10.0-50.0); Mean Corpuscular Hemoglobin 29.5 pg (28.0-32.0); Mean Corpuscular Hgb Conc. 32.4 g/dL (32.0-36.0); Mean Corpuscular Volume 91.1 fL (80.0-100.0); Monocytes # (auto) 0.7 uL; Monocytes % (auto) 7.8 % (0.0-12.0); Neutrophils % (auto) 74.8 % (37.0-80.0); Platelet Count (auto) 152 10^3/uL (140-450); Red Blood Cells 4.59 10^6/uL (4.0-5.20); Red Cell Distribution Width 16.4 % (11.8-14.3); White Blood Cell 9.3 10^3/uL (4.4-10.8)
[2019-06-26 07:04] LABS: INR 1.03 (0.9-1.15); Partial Thromboplastin Time 25.2 sec (23.64-32.05)
[2019-06-26 07:22] LABS: Cholesterol 169 mg/dL (< 200); HDL Cholesterol 23 mg/dL (40-59); LDL Cholesterol 125 mg/dL (< 100); Triglycerides 205 mg/dL (< 150)
[2019-06-26 09:00] VITALS: BP 120/49
[2019-06-26] MEDS: ENOXAPARIN SOD 40 MG/0.4 ML SYRINGE SC SCH ×2 (10:51→14:29)
[2019-06-26] MEDS: SODIUM CHLOR 0.9% PF (SALINE LOCK) 10ML VIAL/SYR IV SCH ×2 (10:51→22:00)
[2019-06-26 11:44] LABS: Anion Gap 4 (5-15); Blood Urea Nitrogen 23 mg/dL (7-18); Carbon Dioxide 25 mmol/L (21-32); Chloride 111 mmol/L (98-107); Glucose 131 mg/dL (74-106); Potassium 3.9 mmol/L (3.5-5.1); Sodium 140 mmol/L (136-145)
[2019-06-26 11:45] LABS: Alanine Aminotransferase 19 U/L (13-56); Alkaline Phosphatase 80 U/L (45-117); Aspartate Aminotransferase 15 U/L (15-37); BUN/Creatinine Ratio 36.5; Calcium 8.1 mg/dL (8.5-10.1); GFR African American 125 mL/min; GFR Non-African American 104 mL/min
[2019-06-26] MEDS ORDERED: INFLUENZA QUAD 2019-2020 0.5ml SYRG IM ONE (11:45)
[2019-06-26 11:46] LABS: Albumin 3.2 g/dL (3.4-5.0); Bilirubin, Total < 0.1 mg/dL (0.2-1.0); Total Protein 6.3 g/dL (6.4-8.2)
[2019-06-26 13:00] VITALS: BP 117/52
[2019-06-26] MEDS ORDERED: POTASSIUM PHOSPHATE 22 MEQ in SODIUM CHL 0.9% 100 ML IV ONE (13:30)
[2019-06-26 17:00] VITALS: BP 111/55
[2019-06-26] MEDS: KETOROLAC TROMETH 30 MG/ML 1ML VIAL IV PRN (18:04)
[2019-06-26] MEDS: ALBUTEROL SULF 2.5 MG/0.5ML(0.5%) NEB SOLN NEB PRN (18:34)
[2019-06-26] MEDS: IPRATROPIUM BROM 0.5 MG/2.5ML INH SOL NEB PRN (18:34)
[2019-06-26 18:40] VITALS: BP 111/55
[2019-06-26] MEDS: CLINIMIX PER PHARMACY IV NR (19:49)
--- NOTE | 2019-06-26 19:50 | NUR ---
Opening Shift Note Assumed care of patient, awake and alert x4. No S/S of distress/SOB or pain. Instructed on POC and to call for assistance, will continue to monitor for changes Q1hr and PRN.
--- NOTE | 2019-06-26 19:52 | NUR ---
IV removal IV on left ac DC'd with clean sterile technique, catheter fully intact. Pressure dressing applied to site. Patient tolerated well. NOTE:
[2019-06-26] MEDS ORDERED: TPN PER PHARMACY IV NR ×8 (20:00)
[2019-06-26 21:39] VITALS: BP 109/54
[2019-06-27] MEDS: MORPHINE SULF INJ 2 MG/ML SYRINGE 1ML IV PRN ×4 (04:41→20:06)
[2019-06-27 05:32] VITALS: BP 132/105
[2019-06-27] MEDS: InsuLIN REG 1unit/0.01ml Soln (100units/ml) SC SCH ×4 (06:19→18:00)
[2019-06-27] MEDS: ACCU-CHEK COMFORT CURVE STRIP VI SCH ×4 (06:19→18:22)
[2019-06-27] MEDS: SODIUM CHLORIDE 0.9% 1,000 ML IV SCH ×4 (06:19→20:04)
[2019-06-27 06:33] LABS: Basophils # (auto) 0 uL; Basophils % (auto) 0.5 % (0.0-2.0); Eosinophils # (auto) 0.2 uL; Eosinophils % (auto) 2.3 % (0.0-7.0); Hematocrit 39.2 % (36.0-46.0); Hemoglobin 13.2 g/dL (12.2-16.2); Lymphocytes # (auto) 1.7 uL; Lymphocytes % (auto) 22.8 % (10.0-50.0); Mean Corpuscular Hemoglobin 29.8 pg (28.0-32.0); Mean Corpuscular Hgb Conc. 33.7 g/dL (32.0-36.0); Mean Corpuscular Volume 88.4 fL (80.0-100.0); Monocytes # (auto) 0.6 uL; Monocytes % (auto) 8.2 % (0.0-12.0); Neutrophils # (auto) 4.8 uL; Neutrophils % (auto) 66.2 % (37.0-80.0); Platelet Count (auto) 134 10^3/uL (140-450); Red Blood Cells 4.44 10^6/uL (4.0-5.20); Red Cell Distribution Width 15.2 % (11.8-14.3); White Blood Cell 7.3 10^3/uL (4.4-10.8)
[2019-06-27 06:51] LABS: Albumin 2.8 g/dL (3.4-5.0); Calcium 8.3 mg/dL (8.5-10.1); Magnesium 2.4 mg/dL (1.6-2.6); Potassium 4.1 mmol/L (3.5-5.1)
[2019-06-27 06:56] LABS: BUN/Creatinine Ratio 32.8; Bilirubin, Total 0.6 mg/dL (0.2-1.0); Phosphorus 3.4 mg/dL (2.5-4.90); Total Protein 6.1 g/dL (6.4-8.2)
--- NOTE | 2019-06-27 07:10 | NUR ---
Report given to Antoinette VICENTE
[2019-06-27 09:00] VITALS: BP 106/61
[2019-06-27] MEDS: FAMOTIDINE (10MG/ML) 2ML VL IV SCH (10:03)
[2019-06-27] MEDS: SODIUM CHLOR 0.9% PF (SALINE LOCK) 10ML VIAL/SYR IV SCH ×2 (10:03→21:12)
--- NOTE | 2019-06-27 10:24 | NUR ---
Respiratory note: ASSESSED PT FOR PRN TX PT WAS AWAKE AND ALERT SITTING AT THE EDGE OF THE BED. HR 86, RR 20, SPO2 91%. BS ARE CLEAR, NO INDICATION FOR TX AT THIS TIME. PT KNOWS TO HAVE RT PAGED IF TX IS NEEDED.
--- NOTE | 2019-06-27 12:26 | NUR ---
Nutrition Assessment Notes please see attached link for complete assessment Est. Needs ABW 70 [id number] kcal (23-25 kcal/kgBW), 70-77 gms pro (1.0-1.1 gms/kgBW). Will continue to monitor pertinent labs and reassess nutrient need prn Addendum: 06/27/19 at [address] Amended: Links added.
[2019-06-27 12:53] VITALS: BP 128/65
[2019-06-27 17:00] VITALS: BP 123/76
[2019-06-27] MEDS: IPRATROPIUM BROM 0.5 MG/2.5ML INH SOL NEB PRN (19:00)
[2019-06-27] MEDS: ALBUTEROL SULF 2.5 MG/0.5ML(0.5%) NEB SOLN NEB PRN (19:00)
--- NOTE | 2019-06-27 19:30 | NUR ---
Opening Shift Assumed care of patient, awake and alert. No S/S of distress/SOB or pain. Insructed on POC and to callfor assist PRN, will continue to monitor for changes Q1hr and PRN. Fall and safety precautions in place. Call light within reach.
[2019-06-27] MEDS ORDERED: TPN PER PHARMACY IV NR ×9 (20:00)
[2019-06-27 22:00] VITALS: BP 138/66
[2019-06-28] MEDS: ACCU-CHEK COMFORT CURVE STRIP VI SCH ×5 (00:13→23:53)
[2019-06-28] MEDS: InsuLIN REG 1unit/0.01ml Soln (100units/ml) SC SCH ×5 (00:13→23:53)
[2019-06-28] MEDS: MORPHINE SULF INJ 2 MG/ML SYRINGE 1ML IV PRN (02:07)
[2019-06-28] MEDS: SODIUM CHLORIDE 0.9% 1,000 ML IV SCH (05:09)
[2019-06-28] MEDS: KETOROLAC TROMETH 30 MG/ML 1ML VIAL IV PRN ×3 (05:10→18:03)
[2019-06-28 05:39] VITALS: BP 124/62
[2019-06-28 06:42] LABS: BUN/Creatinine Ratio 22.2; Calcium 8.5 mg/dL (8.5-10.1); Magnesium 2.1 mg/dL (1.6-2.6); Potassium 4.1 mmol/L (3.5-5.1)
[2019-06-28 06:48] LABS: Bilirubin, Total 0.6 mg/dL (0.2-1.0); Phosphorus 2.9 mg/dL (2.5-4.90); Total Protein 6.4 g/dL (6.4-8.2)
[2019-06-28 09:00] VITALS: BP 137/66
[2019-06-28] MEDS: FAMOTIDINE (10MG/ML) 2ML VL IV SCH (09:44)
[2019-06-28] MEDS: ENOXAPARIN SOD 40 MG/0.4 ML SYRINGE SC SCH (09:47)
[2019-06-28] MEDS: SODIUM CHLOR 0.9% PF (SALINE LOCK) 10ML VIAL/SYR IV SCH ×2 (10:00→22:32)
--- NOTE | 2019-06-28 10:50 | NUR ---
Respiratory note: ASSESSED PT FOR PRN TX. NOT INDICATED AT THIS TIME. HR 82, SPO2 92% RA, RR 16. PT STATES NASAL CANNULA GIVES HER A NOSE BLEED AND DRY NOSE. PT PLACED ON 2LNC HUMIDIFIER. NO RESP DISTRESS NOTED AT THIS TIME. PT KNOWS TO HAVE RT PAGED IF TX NEEDED.
[2019-06-28] MEDS ORDERED: SODIUM CHLORIDE 0.9% 1,000 ML IV SCH (11:30)
[2019-06-28 13:07] VITALS: BP 154/74
[2019-06-28 16:58] VITALS: BP 158/92
[2019-06-28] MEDS ORDERED: TPN PER PHARMACY IV NR ×10 (20:00)
[2019-06-28 21:58] VITALS: BP 156/78
--- NOTE | 2019-06-28 23:02 | NUR ---
Respiratory note: ASSESSED PT FOR PRN MED NEB TX. PT IS CURRENTLY ON 2 L/M NC: HR 82, RR 20, SPO2 94%. PT SHOWS NO S/S OF SOB OR RESPIRATORY DISTRESS. MED NEB NOT INDICATED AT THIS TIME. WILL CONTINUE TO MONITOR.
[2019-06-29] MEDS: KETOROLAC TROMETH 30 MG/ML 1ML VIAL IV PRN ×3 (01:43→20:40)
[2019-06-29 05:45] LABS: Albumin 2.9 g/dL (3.4-5.0); Calcium 8.7 mg/dL (8.5-10.1); Magnesium 2.2 mg/dL (1.6-2.6); Potassium 3.9 mmol/L (3.5-5.1)
[2019-06-29 05:51] LABS: BUN/Creatinine Ratio 18.3; Bilirubin, Total 0.7 mg/dL (0.2-1.0); Phosphorus 3.8 mg/dL (2.5-4.90); Total Protein 6.6 g/dL (6.4-8.2)
[2019-06-29 05:52] VITALS: BP 151/79
[2019-06-29] MEDS: ACCU-CHEK COMFORT CURVE STRIP VI SCH ×3 (06:16→18:25)
[2019-06-29] MEDS: InsuLIN REG 1unit/0.01ml Soln (100units/ml) SC SCH ×3 (06:16→18:00)
--- NOTE | 2019-06-29 06:56 | NUR ---
Respiratory note: PT ASSESSED FOR PRN MED NEB TX. TX IS NOT INDICATED AT THIS TIME. POX 95% ON 2L NC, HR 86, RR 16. B/S ARE CLEAR THROUGHOUT. NO SOB NOTED.
--- NOTE | 2019-06-29 07:06 | NUR ---
Opening Shift Note Assumed care of patient, awake and alert. No S/S of distress/SOB or pain. Instructed on POC and to call for assist PRN, will continue to monitor for changes Q1hr and PRN. Bed set in lowest locked position and call light is within reach.
[2019-06-29 08:15] VITALS: BP 157/89
[2019-06-29 08:59] VITALS: BP 157/89
[2019-06-29] MEDS: FAMOTIDINE (10MG/ML) 2ML VL IV SCH (09:45)
[2019-06-29] MEDS: ENOXAPARIN SOD 40 MG/0.4 ML SYRINGE SC SCH (10:00)
[2019-06-29] MEDS: SODIUM CHLOR 0.9% PF (SALINE LOCK) 10ML VIAL/SYR IV SCH ×2 (10:17→20:40)
[2019-06-29 12:36] VITALS: BP 152/82
--- NOTE | 2019-06-29 12:48 | NUR ---
Nutrition Follow-up Notes Wt.: 90.6 kg as of yesterday. Pt's with immediate family members at bedside, denies any discomfort during rounds this morning. 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 Pt's usually has good appetite eat meals regularly, NKFA and tries to avoid fatty foods with more veggies and fruits head bellhop captain. Pt's currently on Clear Liquid diet with good PO intake aeb 100% ave. consumed meals (x3) since yesterday. Pt's on TPN @ 60 ml/hr providing 1570 kcal, 50 gms proteins, 1290 NPC and 6% Fat. Pt with adequate PN support d/t mod initiation rate delivery of concentrated formula aeb current PN infusion meets 90% to 98% of est caloric needs. Discussed importance/benefits of PN support while on Clear Liquid diet r/t current medical condition and she verbalized understanding. Noted pt's to receive tonight another TPN at same rate & nutrient concentration, to start today on Full Liquid diet with active Pulmonary and Surgical consults. Est. Needs ABW 70 [id number] kcal (23-25 kcal/kgBW), 70-77 gms pro (1.0-1.1 gms/kgBW). Will continue to monitor pertinent labs and reassess nutrient need prn Labs: Gluc 165 H, Cl 112 H, Alb 2.9 L, HbA1c 6.5 H ; Prealb 27.3 wnl, Trig 181 H Skin: Abner scale 21, low risk, skin intact per piano bench assembler. GI: Pt's no bowel activity since 06/24/19 per piano bench assembler. PES: Increased nutrient needs r/t altered GI functions aeb Pancreatic pseudocyst, Abdominal pain, Full Liquid with PN support Altered nutrition related lab values r/t current/chronic medical condition aeb elev TG hypocalcemia, mod hypoalb, elev BUN Obesity r/t food intake more than body requirement aeb 166% IBW, BMI 34.3 kg/m2 and increased body adiposity Will continue to monitor PO intake, PN tolerance, skin status, pertinent labs and weight trend. F/u in 2 to 3 days. Rec.: 1.) Advance oral diet (Soft Consistent Std. Carb: 60 gms/meal, Low Fat) when medically appropriate. 2.) Continue close supervision during meals. 3.) Refer pt to CDE/RD for further nutrition education and weight monitoring upon discharge. 4.) Continue current plan of care.
[2019-06-29] MEDS: MORPHINE SULF INJ 2 MG/ML SYRINGE 1ML IV PRN (15:09)
[2019-06-29] MEDS ORDERED: IOHEXOL 300 MG/ML 100ML BOTTLE IJ ONE ×2 (15:25→15:37)
--- NOTE | 2019-06-29 16:22 | NUR ---
Assessment Pt is a 58 year old alert and oriented female. Pt lives with daughter and son-in-law. Pt's daughter Thais, is her emergency contact at [phone]. Prior to admit, pt ambulatory, and functions independently with ADL's, cooking and cleaning. Pt admitted with pancreatitis and still in a lost of pain. Pt is aware and accepting of diagnosis. Pt has no income, her family supports her financially. Pt interested in paperwork for POA, CM can provide paperwork. Pt stated that her son can transport her home if d/c before 10 AM. No needs or concerns expressed presently. Addendum: 06/29/19 at 1628 by BRITTANY LEONARDO Amended: Links added.
[2019-06-29 16:57] VITALS: BP 153/78
[2019-06-29] MEDS ORDERED: TPN PER PHARMACY IV NR ×10 (20:00)
[2019-06-29 22:00] VITALS: BP 151/81
[2019-06-30] VITALS (7 sets, daily range): BP systolic 140–152; BP diastolic 73–104
[2019-06-30] MEDS: KETOROLAC TROMETH 30 MG/ML 1ML VIAL IV PRN ×3 (05:41→21:43)
[2019-06-30] MEDS: InsuLIN REG 1unit/0.01ml Soln (100units/ml) SC SCH ×5 (05:57→23:11)
[2019-06-30] MEDS: ACCU-CHEK COMFORT CURVE STRIP VI SCH ×5 (05:58→23:11)
[2019-06-30 06:56] LABS: Albumin 3.1 g/dL (3.4-5.0); Magnesium 2.5 mg/dL (1.6-2.6); Potassium 4.1 mmol/L (3.5-5.1)
[2019-06-30 07:01] LABS: BUN/Creatinine Ratio 16.9; Bilirubin, Total 0.6 mg/dL (0.2-1.0); Calcium 8.7 mg/dL (8.5-10.1); Phosphorus 4.6 mg/dL (2.5-4.90)
--- NOTE | 2019-06-30 07:30 | NUR ---
RECEIVED REPORT FROM NIGHT NURSE. PATIENT RESTING IN BED, NO DISTRESS NOTED. WILL CONTINUE TO MONITOR.
--- NOTE | 2019-06-30 07:42 | NUR ---
Respiratory note: PT IS AWAKE, AND ALERT. NO RESPIRATORY DISTRESS NOTED. SPO2 93% ON RA, HR 80, RR 20, BS CLEAR T/O. PRN MEDNEB TX NOT INDICATED. PT INFORMED TO PUSH CALL BUTTON IF INCREASED WOB, SOB, OR WHEEZING OCCURS.
[2019-06-30] MEDS: ENOXAPARIN SOD 40 MG/0.4 ML SYRINGE SC SCH (10:00)
[2019-06-30] MEDS: FAMOTIDINE (10MG/ML) 2ML VL IV SCH (10:22)
[2019-06-30] MEDS: SODIUM CHLOR 0.9% PF (SALINE LOCK) 10ML VIAL/SYR IV SCH ×2 (10:22→21:43)
--- NOTE | 2019-06-30 11:32 | NUR ---
SPOKE WITH DR. MASTERS, ORDERS RECEIVED, WILL PLACE AND CARRY OUT.
--- NOTE | 2019-06-30 13:00 | NUR ---
PATIENT TOLERATED SOFT DIET FOR LUNCH, MILD ABD PAIN, NO NAUSEA OR VOMITING. WILL CONTINUE TO MONITOR.
[2019-06-30] MEDS ORDERED: TPN PER PHARMACY IV NR ×9 (20:00)
--- NOTE | 2019-06-30 20:00 | NUR ---
ASSUMED CARE, PT. AWAKE, NO C/O PAIN AND NAUSEA, PT. ON TPN AT 60ML/HR, WEAN OFF TPN AT 30ML.HR., TO KEEP MONITOR.
--- NOTE | 2019-06-30 21:00 | NUR ---
TPN WEAN OFF AT 15ML/HR.
--- NOTE | 2019-06-30 22:00 | NUR ---
PT. TPN COMPLETED, NO C/O NAUSEA AND VOMITTING, TO KEEP MONITOR.
--- NOTE | 2019-06-30 23:25 | NUR ---
Respiratory note: ASSESSED PT FOR PRN MED NEB AT THIS TIME, PT DENIES SOB AT THIS TIME, NO RESP DISTRESS NOTED, NO TX INDICATED. PULSE OX 93% ON RA, HR 79, RR 18, BILATERAL BS DECREASED.
[2019-07-01 05:03] VITALS: BP 144/75
[2019-07-01 05:03] LABS: Basophils # (auto) 0.1 uL; Eosinophils # (auto) 0.2 uL; Eosinophils % (auto) 3.7 % (0.0-7.0); Hematocrit 42.2 % (36.0-46.0); Hemoglobin 14.4 g/dL (12.2-16.2); Lymphocytes # (auto) 1.5 uL; Lymphocytes % (auto) 22.7 % (10.0-50.0); Mean Corpuscular Hemoglobin 29.4 pg (28.0-32.0); Mean Corpuscular Hgb Conc. 34.2 g/dL (32.0-36.0); Monocytes # (auto) 0.6 uL; Monocytes % (auto) 8.7 % (0.0-12.0); Neutrophils # (auto) 4.3 uL; Neutrophils % (auto) 63.9 % (37.0-80.0); Platelet Count (auto) 214 10^3/uL (140-450); Red Cell Distribution Width 14.6 % (11.8-14.3); White Blood Cell 6.7 10^3/uL (4.4-10.8)
[2019-07-01] MEDS: InsuLIN REG 1unit/0.01ml Soln (100units/ml) SC SCH (05:16)
[2019-07-01] MEDS: ACCU-CHEK COMFORT CURVE STRIP VI SCH (05:16)
[2019-07-01 05:43] LABS: Phosphorus 4.7 mg/dL (2.5-4.90)
[2019-07-01 05:46] LABS: Pre Albumin 14.8 mg/dL (20.0-40.0)
[2019-07-01 06:00] LABS: Albumin 3.2 g/dL (3.4-5.0); Calcium 8.9 mg/dL (8.5-10.1); Magnesium 2.3 mg/dL (1.6-2.6); Potassium 4.5 mmol/L (3.5-5.1)
[2019-07-01 06:02] LABS: Bilirubin, Total 0.6 mg/dL (0.2-1.0)
--- NOTE | 2019-07-01 07:30 | NUR ---
OPENING NOTE PATIENT CURRENTLY DOWN FOR PROCEDURE, RECIEVED REPORT ON PATIENT STATUS FROM NIGHT NURSE
[2019-07-01 08:00] VITALS: BP 155/75
[2019-07-01 09:00] VITALS: BP 132/70
[2019-07-01] MEDS: KETOROLAC TROMETH 30 MG/ML 1ML VIAL IV PRN (09:52)
[2019-07-01] MEDS: FAMOTIDINE (10MG/ML) 2ML VL IV SCH (09:52)
[2019-07-01] MEDS: SODIUM CHLOR 0.9% PF (SALINE LOCK) 10ML VIAL/SYR IV SCH ×2 (09:58→21:27)
[2019-07-01] MEDS: ENOXAPARIN SOD 40 MG/0.4 ML SYRINGE SC SCH (09:59)
[2019-07-01] MEDS: PANTOPRAZOLE 40 MG TAB PO SCH ×2 (10:15→21:27)
--- NOTE | 2019-07-01 11:58 | NUR ---
Nutrition Follow-up Notes Wt.: 87.4 kg Pt's off the floor for EGD when rounded this am. pt was on cardiac diet but NPO today for EGD. Pt's on TPN @ 60 ml/hr providing 1570 kcal, 50 gms proteins, 1290 NPC and 6% Fat. Pt with adequate PN support d/t mod initiation rate delivery of concentrated formula aeb current PN infusion meets 90% to 98% of est caloric needs. Est. Needs ABW 70 [id number] kcal (23-25 kcal/kgBW), 70-77 gms pro (1.0-1.1 gms/kgBW). Will continue to monitor pertinent labs and reassess nutrient need prn Labs: GLU 122 H, PREALB 14.8 L, ALB 3.2 L, Skin: Abner scale 20, low risk, skin intact per wheelchair van operator first responder. GI: Pt's no bowel activity since 06/24/19 per wheelchair van operator first responder. PES: Increased nutrient needs r/t altered GI functions aeb Pancreatic pseudocyst, Abdominal pain, Full Liquid with PN support Altered nutrition related lab values r/t current/chronic medical condition aeb elev TG hypocalcemia, mod hypoalb, elev BUN Obesity r/t food intake more than body requirement aeb 166% IBW, BMI 34.3 kg/m2 and increased body adiposity Will continue to monitor NPO status, PN tolerance, skin status, pertinent labs and weight trend. F/u in 2 to 3 days. Rec.: 1.) Resume diet with Consistent Std. Carb: 60 gms/meal, Low Fat when medically appropriate. 2.) Continue close supervision during meals. 3.) Refer pt to CDE/RD for further nutrition education and weight monitoring upon discharge. 4.) Tpaer off PN as pt tolerate PO. 5) Continue current plan of care.
[2019-07-01 13:00] VITALS: BP 143/72
[2019-07-01] MEDS: MORPHINE SULF INJ 2 MG/ML SYRINGE 1ML IV PRN ×2 (16:33→21:58)
[2019-07-01 17:00] VITALS: BP 148/80
--- NOTE | 2019-07-01 19:15 | NUR ---
ASSUMED CARE, PT. AWAKE, SITTING ON BED, NO C/O PAIN AND NAUSEA, NO SOB, TO KEEP MONITOR.
--- NOTE | 2019-07-01 19:20 | NUR ---
ASSUMED CARE, PT. AWAKE, CONFUSED, SITTER AT BEDSIDE, DRESSING ON LT. HIP DRY AND INTACT, NO SOB.
--- NOTE | 2019-07-01 19:39 | NUR ---
PRN MED NEB ASSESSMENT. PT DENIES SOB NO DISTRESS NOTED AT THIS TIME. POX 97% ON 2L NC HR 82 RR 18 BS ARE CLEAR AND DIMINISHED. TX NOT GIVEN.
[2019-07-01 22:00] VITALS: BP 143/84
[2019-07-02 06:17] VITALS: BP 142/74
--- NOTE | 2019-07-02 08:00 | NUR ---
RECEIVED PATIENT ALERT AND ORIENTED X4, NOT IN DISTRESS, WHEEZING LS IN BILATERAL LUNG LOBES, RR=20 ST=92% IN RA, HEART R=82, DENIED CHEST PAIN OR SOB, ABDOMEN SOFT AND ROUND WITH ACTIVE BS, LAST BM=07/01/19 REPORTED, NPO ORDERED, SKIN INTACT WARM TO TOUCH, RADIAL AND PEDAL PULSES PALPABLE, CAP REFILL <3 SECONDS, RESTING ON BED, HEAD OF BED ELEVATED, BED ON LOWER POSITION RAILS UP X2, CALL LIGHT ON REACH, PENDING EGD, WILL CONTINUE MONITORING.
[2019-07-02] MEDS: ENOXAPARIN SOD 40 MG/0.4 ML SYRINGE SC SCH ×2 (08:38→10:00)
[2019-07-02] MEDS: MORPHINE SULF INJ 2 MG/ML SYRINGE 1ML IV PRN (08:39)
[2019-07-02 09:00] VITALS: BP 139/61
[2019-07-02] MEDS ORDERED: LIDOCAINE VISCOUS 2% 15ML UD ONE (09:02)
[2019-07-02] MEDS ORDERED: SODIUM CHLORIDE LOCK 10 ML ONE (09:02)
[2019-07-02] MEDS ORDERED: diphenhdrAMINE HCL 50 MG/1 ML VL ONE (09:03)
[2019-07-02] MEDS ORDERED: NICOTINE 14 MG/24HR TOPICAL PATCH TD SCH (10:00)
[2019-07-02] MEDS: SODIUM CHLOR 0.9% PF (SALINE LOCK) 10ML VIAL/SYR IV SCH (10:00)
[2019-07-02] MEDS: PANTOPRAZOLE 40 MG TAB PO SCH (10:00)
--- NOTE | 2019-07-02 10:29 | NUR ---
PRE OP WAS CONTACTED FOR EGD TIME FOLLOW UP, WOOL MERCHANT TIME 1100 REPORTED, WILL CONTINUE MONITORING.
--- NOTE | 2019-07-02 12:13 | NUR ---
PICC LINE DRESSING WAS CHANGED, TOLERATED WELL, NOT IN DISTRESS, DENIED PAIN, WENT OB BED FOR EGD, WILL CONTINUE FOLLOW UP.
[2019-07-02] MEDS: fentaNYL CITRATE 100 MCG/2 ML VL ONE ×2 (12:28→12:31)
[2019-07-02] MEDS: MIDAZOLAM HCL 5 MG/ML-1ML VIAL ONE ×2 (12:28→12:31)
[2019-07-02 13:07] VITALS: BP 123/58
[2019-07-02] MEDS ORDERED: PANT40TA2 PO (13:51)
--- NOTE | 2019-07-02 14:30 | NUR ---
CAME BACH FROM EGD, NOT IN DISTRESS, DENIED PAIN, LUNCH TRAY PROVIDED ORDERED, TOLERATED WELL, PENDING D/C.
--- NOTE | 2019-07-02 16:16 | NUR ---
D/C INSTRUCTIONS AND PRESCRIPTION EDUCATIONS PROVIDED, VERBALIZED UNDERSTANDING, FOLLOW UP APPOINTMENT WILL BE DONE BY CALLING FROM HOME REPORTED, D/C PICC LINE FROM RT. UA, TOLERATED WELL, NOT IN DISTRESS, DENIED PAIN, VS T=97.9 RR=18 SAT=95% P=82 GG=773/89, SITTING ON THE CHAIR WAITING FOR THE RIDE.
--- NOTE | 2019-07-02 17:28 | NUR ---
D/C HOME ON WC ACCOMPANIED BY DAUGHTER, TOOK ALL BELONGINGS AND LEFT NOTHING BEHIND.
== END 2019-07-02 18:52 | disposition home or self-care (01) | DRG 241 ==
LOC: ER 20:55 → TELE 20:56 → TELE-WESTW 06-25 10:55 → WEST WING 06-27 12:08
PROVIDERS: ADMIT Hospitalist; ATTEND Internal Medicine
PROC: 0DB68ZX Excision of Stomach, Via Natural or Artificial Opening Endoscopic, Diagnostic (ICD-10-PCS; principal; 2019-07-02 12:25)
DX: K29.70 Gastritis, unspecified, without bleeding (principal); J96.00 Acute respiratory failure, unspecified whether with hypoxia or hypercapnia; N17.0 Acute kidney failure with tubular necrosis; K85.20 Alcohol induced acute pancreatitis without necrosis or infection; E27.8 Other specified disorders of adrenal gland; J84.10 Pulmonary fibrosis, unspecified; E66.01 Morbid (severe) obesity due to excess calories; D75.1 Secondary polycythemia; K70.9 Alcoholic liver disease, unspecified; K29.80 Duodenitis without bleeding; K86.1 Other chronic pancreatitis; E11.9 Type 2 diabetes mellitus without complications; K86.3 Pseudocyst of pancreas; J44.9 Chronic obstructive pulmonary disease, unspecified; J98.11 Atelectasis; E78.5 Hyperlipidemia, unspecified; F17.210 Nicotine dependence, cigarettes, uncomplicated; K57.30 Diverticulosis of large intestine without perforation or abscess without bleeding; F10.10 Alcohol abuse, uncomplicated; Y90.9 Presence of alcohol in blood, level not specified; I10 Essential (primary) hypertension; F12.90 Cannabis use, unspecified, uncomplicated; Z87.01 Personal history of pneumonia (recurrent); Z88.0 Allergy status to penicillin; Z80.3 Family history of malignant neoplasm of breast; Z80.0 Family history of malignant neoplasm of digestive organs; Z81.8 Family history of other mental and behavioral disorders; Z79.899 Other long term (current) drug therapy; Z71.6 Tobacco abuse counseling; Z68.33 Body mass index [BMI] 33.0-33.9, adult; Z23 Encounter for immunization
CPT/HCPCS: 36415; 36569; 43239; 71045; 71250; 74176; 74177; 80053; 80061; 80320; 81001; 82040; 82150; 82962; 83036; 83605; 83690; 83735; 84100; 84478; 84484; 85025; 85610; 85730; 87040; 93005; 94640; 96361; 96365; 96375; G0378; J1815; J1885; J2250; J2405; J3490

== ENCOUNTER 2020-09-26 19:10 | Emergency (ER) | payer MEDICAID ==
[~2020-09-26] VITALS: Ht 160 cm; Wt 85.3 kg
[~2020-09-26 19:10] MED LIST: HYDR-4833 PO; IBUP800T27 PO; PANT40TA2 PO
[2020-09-26] MEDS ORDERED: MORPHINE SULFATE 4 MG/ML SYR/VIAL IV ONE (20:15)
[2020-09-26] MEDS ORDERED: SODIUM CHLORIDE 0.9% 1,000 ML IVB ONE (20:15)
[2020-09-26] MEDS ORDERED: ONDANSETRON HCL 4 MG/2 ML VIAL IV ONE (20:15)
[2020-09-26 20:54] LABS: Basophils # (auto) 0.1 10 ^3/uL (0-0.2); Basophils % (auto) 0.6 % (0.0-2.0); Eosinophils # (auto) 0 10 ^3/uL (0-0.8); Eosinophils % (auto) 0.3 % (0.0-7.0); Hematocrit 44.5 % (36.0-46.0); Hemoglobin 15.1 g/dL (12.2-16.2); Lymphocytes # (auto) 1.8 10 ^3/uL (0.4-5.4); Mean Corpuscular Hemoglobin 27.8 pg (28.0-32.0); Mean Corpuscular Volume 81.7 fL (80.0-100.0); Monocytes # (auto) 0.4 10 ^3/uL (0-1.3); Monocytes % (auto) 3.7 % (0.0-12.0); Neutrophils # (auto) 9.6 10 ^3/uL (1.6-8.6); Neutrophils % (auto) 80.4 % (37.0-80.0); Red Blood Cells 5.45 10^6/uL (4.0-5.20); Red Cell Distribution Width 15.9 % (11.8-14.3); White Blood Cell 11.9 10^3/uL (4.4-10.8)
[2020-09-26 21:10] LABS: Albumin 3.8 g/dL (3.4-5.0); Amylase 25 U/L (25-115); Anion Gap 6 (5-15); Blood Urea Nitrogen 10 mg/dL (7-18); Calcium 8.9 mg/dL (8.5-10.1); Carbon Dioxide 26 mmol/L (21-32); Chloride 105 mmol/L (98-107); Glucose 145 mg/dL (74-106); Lipase 254 U/L (73-393); Magnesium 1.9 mg/dL (1.6-2.6); Potassium 3.8 mmol/L (3.5-5.1); Sodium 137 mmol/L (136-145)
[2020-09-26 21:13] LABS: INR 1.05 (0.9-1.15); Partial Thromboplastin Time 28.7 sec (23.0-31.2)
[2020-09-26 21:18] LABS: Alanine Aminotransferase 20 U/L (13-56); Alkaline Phosphatase 91 U/L (45-117); Aspartate Aminotransferase 14 U/L (15-37); BUN/Creatinine Ratio 12.7; Bilirubin, Total 0.6 mg/dL (0.2-1.0); GFR African American 96 mL/min; GFR Non-African American 79 mL/min; Total Protein 7.6 g/dL (6.4-8.2)
[2020-09-26 23:28] VITALS: BP 121/57
[2020-09-26] MEDS ORDERED: HYDROcodone-ACET 10/325MG TAB PO ONE (23:30)
== END 2020-09-26 23:32 | disposition home or self-care (01) ==
LOC: ER 19:10
DX: K86.3 Pseudocyst of pancreas (principal); R10.12 Left upper quadrant pain; J44.9 Chronic obstructive pulmonary disease, unspecified; E11.9 Type 2 diabetes mellitus without complications; I10 Essential (primary) hypertension; Z88.0 Allergy status to penicillin; Z79.899 Other long term (current) drug therapy
CPT/HCPCS: 36415; 74176; 80053; 82150; 83605; 83690; 83735; 84484; 85025; 85610; 85730; 96361; 96374; 96375; 99284; J2270; J2405; J7030